=== PATIENT | male | born 1995 | race Asian ===

== ENCOUNTER 2017-04-01 17:17 | Emergency (ER) | payer BC ==
[~2017-04-01] VITALS: Ht 175.3 cm; Wt 97.1 kg
[2017-04-01 17:29] VITALS: BP 152/78
--- NOTE | 2017-04-01 17:47 | Emergency Room Report ---
History of Present Illness General Chief Complaint: General Complaint Source: Patient Present Illness HPI 21 YO Male presents to the ED c/o Itching, swelling, of left eyebrow area x 1 day with burning sensation rated as 8/ 10 in severity . Pt. states he woke up with symptoms this morning. denies trauma. Patient denies lesions elsewhere on the body. Patient denies taking medications or changes in medications. Patient denies past medical history. Denies painful eye movements. Denies erythema, increased temperature palpation, rashes, fevers, chills. Denies CP, Palpitations, LOC, AMS, dizziness, Changes in Vision, Sensation, paresthesias, or a sudden severe headache. Allergies: Coded Allergies: No Known Allergies (Unverified , 04/01/17) Patient History Past Medical History: see triage record Past Surgical History: none Pertinent Family History: none Reviewed Nursing Documentation: PMH: Agreed, PSxH: Agreed Nursing Documentation-PMH Past Medical History: No Stated History Review of Systems All Other Systems: negative except mentioned in HPI Physical Exam Vital Signs Date Time Temp Pulse Resp B/P Pulse Ox O2 Delivery O2 Flow Rate FiO2 04/01/17 17:20 98.2 76 18 152/78 98 Room Air Sp02 EP Interpretation: reviewed, normal General Appearance: no apparent distress, alert, GCS 15, non-toxic Head: normocephalic, atraumatic Eyes: bilateral eye EOMI - no pain with EOMI, bilateral eye PERRL, bilateral eye normal inspection, bilateral eye other - no swelling or involvement of the lids, or eye ENT: hearing grossly normal, normal pharynx, no angioedema, normal voice Neck: full range of motion, supple/symm/no masses Respiratory: lungs clear, normal breath sounds, speaking full sentences Cardiovascular #1: regular rate, rhythm, no edema Musculoskeletal: back normal, gait/station normal, normal range of motion, non- tender Neurologic: alert, oriented x3, responsive, motor strength/tone normal, sensory intact, speech normal Psychiatric: judgement/insight normal, memory normal, mood/affect normal Skin: normal color, no rash, warm/dry, well hydrated, other - single/isolated 1cm swelling/edema to the medial left eyebrow, no appreciable erythema, mild superficial tenderness, no increased temperature to palpation. no lesions elsewhere. Lymphatic: no adenopathy Medical Decision Making PA Attestation Dr. Valverde is my supervising Physician whom patient management has been discussed with. Diagnostic Impression: Primary Impression: Insect bite Qualified Codes: W57.XXXA - Bitten or stung by nonvenomous insect and other nonvenomous arthropods, initial encounter ER Course Pt. presents to the ED c/o Itching, swelling, of left eyebrow area x 1 day with burning sensation. Ddx considered but are not limited to cellulitis, scabies, insect bites, spider bites, contact dermatitis, Drug reaction, allergic reaction, orbital cellulitis. Vital signs: are WNL, pt. is afebrile H&PE are most consistent with Insect bite, no evidence of infection at this time , no eye involvement, no lid involvement. most likely inflammatory localized reaction to insect bite, no evidence to suggest abscess, or orbital cellulitis. ORDERS: none required at this time, the diagnosis is clinical ED INTERVENTIONS: None required at this time. - D/w pt. to attempt warm compresses at home, anti-inflammatory medication, and conservative treatment. d/w pt. to return to ED with worsening or new symptoms. DISCHARGE: At this time pt. is stable for d/c to home. Will provide printed patient care instructions, and any necessary prescriptions. Care plan and follow up instructions have been discussed with the patient prior to discharge. Last Vital Signs Date Time Temp Pulse Resp B/P Pulse Ox O2 Delivery O2 Flow Rate FiO2 04/01/17 17:29 98.2 76 18 152/78 98 Room Air Disposition: HOME, SELF-CARE Condition: Stable Scripts Ibuprofen* (MOTRIN*) 600 Mg Tablet 600 MG ORAL THREE TIMES A DAY, #30 TAB 0 Refills Prov: Cora German 04/01/17 Patient Instructions: Insect Bite, [id number] Additional Instructions: Take medications as directed. Follow up with a Primary Care Provider in 3-5 days, even if your symptoms have resolved. --Please review list of primary care clinics, if you do not already have a primary care provider Return sooner to ED if new symptoms occur, or current symptoms become worse. - Please note that this Emergency Department Report was dictated using [employer] technology software, occasionally this can lead to erroneous entry secondary to interpretation by the dictation equipment. Cora German Apr 01, 2017 17:47
[2017-04-01] MEDS ORDERED: IBUPROFEN600 MG ORAL (17:48)
[2017-04-01 17:52] VITALS: BP 152/78
== END 2017-04-01 17:52 | disposition home or self-care (01) ==
LOC: EMR 17:45
DX: S00.262A Insect bite (nonvenomous) of left eyelid and periocular area, initial encounter (principal); W57.XXXA Bitten or stung by nonvenomous insect and other nonvenomous arthropods, initial encounter; Y93.9 Activity, unspecified; Y92.9 Unspecified place or not applicable
CPT/HCPCS: 99283